=== PATIENT | female | born 1965 | race Caucasian/White ===

== ENCOUNTER 2017-09-25 21:07 | Inpatient (IN) | payer OTHER ==
[~2017-09-25] VITALS: Ht 162.6 cm; Wt 87.8 kg
[2017-09-25 21:14] VITALS: Ht 162.6 cm; Wt 87.8 kg
[2017-09-25 22:13] LABS: BASOPHIL % 1.1 % (0-2); PLATELET COUNT 274 x10^3mcL (130-400)
[2017-09-25 22:17] LABS: RED CELL DISTRIBUTION WIDTH 15.6 % (11.5-14.5)
[2017-09-25 22:26] LABS: AMPHETAMINE QUAL UR NONE DETECTED (See below)
[2017-09-25 22:38] LABS: CK-MB 0.5 ng/mL (0-3.6)
[2017-09-25 22:46] LABS: CALCIUM 8.4 mg/dL (8.5-10.1); CARBON DIOXIDE 26.1 mmol/L (21-32); CHLORIDE SERUM 102 mmol/L (98-107); CREATININE SERUM 0.8 mg/dL (0.6-1.0); GFR1 > 60 mL/min; GLUCOSE SERUM 136 mg/dL (74-106); POTASSIUM SERUM 3.1 mmol/L (3.5-5.1); SODIUM SERUM 134 mmol/L (136-145)
[2017-09-25 22:51] LABS: ALKALINE PHOSPHATASE 82 U/L (46-116); ALT/SGPT 13 U/L (14-59); AST/SGOT 15 U/L (15-37); BILIRUBIN TOTAL 0.23 mg/dL (0.20-1.00)
[2017-09-25 22:53] LABS: ALBUMIN 3.2 g/dL (3.4-5.0)
[2017-09-25 22:57] LABS: UA SPECIFIC GRAVITY 1.025 (1.005-1.035); microscopic required? YES; urine erythrocyte TRACE (NEGATIVE)
[2017-09-25 23:02] LABS: CHOLESTEROL/HDL RATIO 4.6; MAGNESIUM 1.9 mg/dL (1.8-2.4); PHOSPHOROUS 3.8 mg/dL (2.5-4.9)
[2017-09-25 23:09] LABS: T3 TOTAL 1.05 ng/mL
[2017-09-25 23:13] LABS: FREE T4 0.95 ng/dL (0.76-1.46); FREE THYROXINE INDEX 2.8 ug/dL (1.4-4.5); T4(THYROXINE) 8.1 ug/dL (4.7-13.3)
[2017-09-25 23:41] VITALS: BP 142/80
[2017-09-26 00:09] VITALS: BP 139/72
[2017-09-26 05:12] VITALS: BP 116/68
[2017-09-26 06:41] LABS: BASOPHIL % 0.8 % (0-2); PLATELET COUNT 275 x10^3mcL (130-400)
[2017-09-26 06:47] LABS: RED CELL DISTRIBUTION WIDTH 15.7 % (11.5-14.5)
[2017-09-26 06:54] LABS: CARBON DIOXIDE 25.8 mmol/L (21-32); CHLORIDE SERUM 106 mmol/L (98-107); CREATININE SERUM 0.6 mg/dL (0.6-1.0); GFR1 > 60 mL/min; GLUCOSE SERUM 97 mg/dL (74-106); SODIUM SERUM 137 mmol/L (136-145)
[2017-09-26 08:00] VITALS: BP 119/69
[2017-09-26] MEDS ORDERED: NOR5 PO (13:32)
[2017-09-26] MEDS ORDERED: PRI20 PO (13:33)
[2017-09-26 13:34] VITALS: BP 130/71
[2017-09-26 15:30] VITALS: BP 130/71
== END 2017-09-26 16:58 | disposition home or self-care (01) | DRG 305 ==
LOC: ED 21:07 → DU 22:16
PROVIDERS: Emergency Medicine; Family Medicine
DX: I16.0 Hypertensive urgency (principal); E44.0 Moderate protein-calorie malnutrition; I10 Essential (primary) hypertension; E87.6 Hypokalemia; R73.03 Prediabetes; E78.5 Hyperlipidemia, unspecified; E83.51 Hypocalcemia; F41.9 Anxiety disorder, unspecified; Z68.32 Body mass index [BMI] 32.0-32.9, adult
CPT/HCPCS: 36600; 83880; 84439; G0480; J2060; J7030; Q0092